=== PATIENT | male | born 1970 | race Caucasian/White ===

== ENCOUNTER 2017-05-15 18:16 | Emergency (ER) | payer SELFPAY ==
[~2017-05-15] VITALS: Ht 182.9 cm; Wt 118.8 kg
[2017-05-15] MEDS ORDERED: LIDOCAINE HCL 1% 20 ML VIAL ONE (18:50)
--- NOTE | 2017-05-15 18:55 | NUR ---
Patient discharged to home in stable conditon. Written and verbal after care instructions given. Patient verbalizes understanding of instructions.PT WALKS IN STEADY GAIT.
[2017-05-15] MEDS ORDERED: LIDOCAINE HCL 1% 20 ML VIAL IJ ONE (19:00)
[2017-05-15] MEDS ORDERED: NEOMY/BACITRA/POLYMYXIN B OINT UD PACKET TP ONE (19:10)
== END 2017-05-15 18:58 | disposition home or self-care (01) ==
LOC: ER 18:17
DX: L91.8 Other hypertrophic disorders of the skin (principal); I10 Essential (primary) hypertension
CPT/HCPCS: 11200; 99284; A4663; J3490

== ENCOUNTER 2019-11-29 08:38 | Emergency (ER) | payer OTHER ==
[~2019-11-29] VITALS: Ht 182.9 cm; Wt 112.5 kg
[2019-11-29] MEDS ORDERED: TDAP DIPH,PERTUSS,TET VAC/PF 0.5 ML DISP.SYRIN IM ONE ×2 (08:45→08:46)
--- NOTE | 2019-11-29 08:50 | NUR ---
PT AOX3, CAME IN VIA WHEELCHAIR PT ABLE TO STAND AND TRANSFER TO [facility] RA NAD SP FELL ON GOLF CART DENIES HITTING HEAD NOR CHANGES IN LOC PT C/O SUPERF[address] RO[address] RASH ([id number]) TO LEFT CALF APPROX (5X5CM) AND LEFT ANKLE RED, NO S/S OF INFECTION
--- NOTE | 2019-11-29 08:52 | NUR ---
CELL MAKER AT BEDSIDE
--- NOTE | 2019-11-29 10:22 | NUR ---
Patient discharged to home in stable condition. Written and verbal after care instructions given. Patient verbalizes understanding of instructions. Stressed follow up or return to ER for worsening s/s. AMBULATORY W. STABLE GAIT ALL BELONGINGS W./ PT
[2019-11-29 10:23] VITALS: BP 148/89
== END 2019-11-29 10:23 | disposition home or self-care (01) ==
LOC: ER 08:38
DX: S93.402A Sprain of unspecified ligament of left ankle, initial encounter (principal); S90.512A Abrasion, left ankle, initial encounter; S80.812A Abrasion, left lower leg, initial encounter; V86.59XA Driver of other special all-terrain or other off-road motor vehicle injured in nontraffic accident, initial encounter; Y93.53 Activity, golf; Y92.39 Other specified sports and athletic area as the place of occurrence of the external cause; Y99.8 Other external cause status; M77.32 Calcaneal spur, left foot; I10 Essential (primary) hypertension
CPT/HCPCS: 73610; 90715; A4217; A4663

== ENCOUNTER 2019-11-30 13:17 | Emergency (ER) | payer OTHER ==
[~2019-11-30] VITALS: Ht 180.3 cm; Wt 112.5 kg
--- NOTE | 2019-11-30 13:55 | NUR ---
Patient discharged to home in stable condition. Written and verbal after care instructions given. Patient verbalizes understanding of instructions. Stressed follow up or return to ER for worsening s/s.
== END 2019-11-30 13:55 | disposition home or self-care (01) ==
LOC: ER 13:20
DX: S80.812D Abrasion, left lower leg, subsequent encounter (principal); S90.512D Abrasion, left ankle, subsequent encounter; V86.59XD Driver of other special all-terrain or other off-road motor vehicle injured in nontraffic accident, subsequent encounter; Z96.642 Presence of left artificial hip joint; Z96.651 Presence of right artificial knee joint; I10 Essential (primary) hypertension
CPT/HCPCS: A4217; A4663

== ENCOUNTER 2019-12-01 15:42 | Emergency (ER) | payer OTHER ==
[~2019-12-01] VITALS: Ht 180.3 cm; Wt 111.1 kg
--- NOTE | 2019-12-01 16:44 | NUR ---
PT WAS EVALUATED BY DR QUINTANILLA. PT WAS D/C'd TO HOME. D/C INSTRUCTIONS GIVEN TO THE PT.
[2019-12-01 16:50] VITALS: BP 139/84
== END 2019-12-01 16:51 | disposition home or self-care (01) ==
LOC: ER 15:42
DX: S90.512D Abrasion, left ankle, subsequent encounter (principal); S80.812D Abrasion, left lower leg, subsequent encounter; V86.99XD Unspecified occupant of other special all-terrain or other off-road motor vehicle injured in nontraffic accident, subsequent encounter; I10 Essential (primary) hypertension; Z96.651 Presence of right artificial knee joint; Z96.642 Presence of left artificial hip joint
CPT/HCPCS: A4663

== ENCOUNTER 2019-12-03 16:56 | Emergency (ER) | payer OTHER ==
[~2019-12-03] VITALS: Ht 180.3 cm; Wt 111.1 kg
[2019-12-03] MEDS ORDERED: CEphaleXIN 500 MG CAPSULE PO ONE (17:30)
[2019-12-03] MEDS ORDERED: CEphaleXIN 500 MG CAPSULE ONE (17:30)
--- NOTE | 2019-12-03 17:36 | NUR ---
Patient discharged to home in stable condition and steady gait. Written and verbal after care instructions given to patient. Patient verbalized understanding & compliance of instructions. Stressed follow up with his PMD or return to ER for worsening s/s.
== END 2019-12-03 17:37 | disposition home or self-care (01) ==
LOC: ER 17:01
DX: S50.312D Abrasion of left elbow, subsequent encounter (principal); S80.812D Abrasion, left lower leg, subsequent encounter; L08.9 Local infection of the skin and subcutaneous tissue, unspecified; V86.99XD Unspecified occupant of other special all-terrain or other off-road motor vehicle injured in nontraffic accident, subsequent encounter; I10 Essential (primary) hypertension; Z96.651 Presence of right artificial knee joint; Z96.642 Presence of left artificial hip joint
CPT/HCPCS: A4663

== ENCOUNTER 2019-12-05 13:47 | Emergency (ER) | payer OTHER ==
[~2019-12-05] VITALS: Ht 180.3 cm; Wt 111.1 kg
== END 2019-12-05 15:06 | disposition home or self-care (01) ==
LOC: ER 13:47
DX: S90.512D Abrasion, left ankle, subsequent encounter (principal); S80.812D Abrasion, left lower leg, subsequent encounter; L03.116 Cellulitis of left lower limb; V86.99XD Unspecified occupant of other special all-terrain or other off-road motor vehicle injured in nontraffic accident, subsequent encounter; R60.0 Localized edema; I10 Essential (primary) hypertension; Z96.651 Presence of right artificial knee joint; Z96.642 Presence of left artificial hip joint
CPT/HCPCS: A4663